=== PATIENT | male | born 1945 | race Caucasian/White ===

== ENCOUNTER 2017-06-19 21:17 | Observation (INO) | payer OTHER, BC ==
[~2017-06-19] VITALS: Ht 182.9 cm; Wt 74.8 kg
[~2017-06-19 21:17] MED LIST: ASPIRIN EC650 MG PO; ATORVASTATIN CA40 MG PO; COLCHICINE0.6 M1 PO; METOPROLOL SUCC25 MG PO; PROTONIX40 MG PO
[2017-06-19 21:50] LABS: HEMATOCRIT 46.2 % (38.0-50.0); MCH 30.3 PG (29.0-34.0); MCHC 32.7 G/DL (30.0-36.0); MCV 92.8 FL (86-99); RBC DIS.WIDTH-CV 13.2 % (11.8-14.6); RBC DIS.WIDTH-SD 45.1 % (39-53); RED BLOOD COUNT 4.98 M/uL (4.00-5.50); WHITE BLOOD COUNT 12.6 K/uL (4.1-10.2)
[2017-06-19] MEDS ORDERED: CLOPIDOGREL75 MG PO (21:57)
[2017-06-19 22:01] LABS: CHLORIDE 100 mEq/L (99-109); POTASSIUM 4.1 mEq/L (3.7-5.4); SODIUM 136 mEq/L (136-147)
[2017-06-19 22:03] LABS: GLUCOSE 111 mg/dL (70-99)
[2017-06-19 22:04] LABS: ANION GAP 9 MEQ/L (2-14)
[2017-06-19 22:07] LABS: GFR ESTIMATE (CALCULATED) > 59 mL/min/ (58.99-99999); UREA NITROGEN (BUN) 12 mg/dL (9-23)
[2017-06-19 22:14] LABS: TROP-I INTERPRETATION NEGATIVE; TROPONIN-I 0.01 ng/mL (0.0-0.30)
[2017-06-19 22:36] LABS: MEAN PLAT.VOLUME 9.9 uM^3 (9.0-12.4); PLAT.SUFFICIENCY ADEQUATE; PLATELET COUNT 240 K/uL (156-360)
[2017-06-19 23:33] LABS: MAGNESIUM 1.9 mg/dL (1.3-2.7)
[2017-06-20] MEDS ORDERED: HYDROCODON-ACE1 EAC7 PO (00:52)
[2017-06-20] MEDS ORDERED: BACLOFEN10 MG PO (00:53)
[2017-06-20] MEDS ORDERED: ATORVASTATIN CA20 MG PO (00:55)
[2017-06-20] MEDS ORDERED: LO-DOSE ASPIRIN81 M2 PO (00:59)
[2017-06-20 02:23] VITALS: BP 142/66
[2017-06-20 04:04] VITALS: BP 164/75
[2017-06-20 08:20] VITALS: BP 146/71
[2017-06-20 09:51] LABS: HEMATOCRIT 42.9 % (38.0-50.0); MCH 29.9 PG (29.0-34.0); MCHC 32.2 G/DL (30.0-36.0); MCV 92.9 FL (86-99); PLATELET COUNT 246 K/uL (156-360); RBC DIS.WIDTH-CV 13.4 % (11.8-14.6); RBC DIS.WIDTH-SD 45.7 % (39-53); RED BLOOD COUNT 4.62 M/uL (4.00-5.50); WHITE BLOOD COUNT 7.2 K/uL (4.1-10.2)
[2017-06-20 10:18] LABS: TROP-I INTERPRETATION NEGATIVE; TROPONIN-I < 0.01 ng/mL (0.0-0.30)
[2017-06-20 11:50] VITALS: BP 125/60
[2017-06-20] MEDS ORDERED: AZITHROMYCIN500 M1 PO (12:03)
[2017-06-20] MEDS ORDERED: NICOTINE PATCH1 EAC2 TD (12:04)
[2017-06-20] MEDS ORDERED: SPIRIVA RESPIMAT4 GM IH (12:04)
[2017-06-20] MEDS ORDERED: PREDNISONE20 MG PO (12:06)
[2017-06-20] MEDS ORDERED: PROVENTIL HFA6.7 GM IH (12:07)
[2017-06-20] MEDS ORDERED: ADVAIR HFA120 INHALA IH (12:09)
== END 2017-06-20 13:00 | disposition home or self-care (01) ==
LOC: EME 21:17 → 3EAST 22:50 → EDOF 22:50 → CANRESERV 22:57 → ENRESERV 22:57 → 5EAST 06-20 00:01 → ENRESERV 06-20 00:02 → 5EAST 06-20 00:45 → ENRESERV 06-20 00:47 → EDOF 06-20 01:00 → ENRESERV 06-20 01:23 → 3EAST 06-20 01:52
PROVIDERS: Emergency Medicine; Physician Assistant Medical
DX: J44.1 Chronic obstructive pulmonary disease with (acute) exacerbation (principal); J44.0 Chronic obstructive pulmonary disease with (acute) lower respiratory infection; J20.9 Acute bronchitis, unspecified; F17.210 Nicotine dependence, cigarettes, uncomplicated; J96.01 Acute respiratory failure with hypoxia; R07.9 Chest pain, unspecified; Z91.041 Radiographic dye allergy status; I95.9 Hypotension, unspecified; I25.10 Atherosclerotic heart disease of native coronary artery without angina pectoris; I25.2 Old myocardial infarction; Z95.5 Presence of coronary angioplasty implant and graft; I10 Essential (primary) hypertension; E78.5 Hyperlipidemia, unspecified; D35.01 Benign neoplasm of right adrenal gland; I73.9 Peripheral vascular disease, unspecified; Z79.02 Long term (current) use of antithrombotics/antiplatelets; Z95.820 Peripheral vascular angioplasty status with implants and grafts; Z82.49 Family history of ischemic heart disease and other diseases of the circulatory system
CPT/HCPCS: 71020; 71250; 78582; 80048; 83735; 83880; 84484; 85027; 85379; 87040; 93005; 94640; 94640 76; 94799; 99202; 99281; 99285; A9540; A9567; G0378; J0295; J1100; J1650; J2930; J7030; J7050; J7120

== ENCOUNTER 2017-10-22 20:56 | Inpatient (IN) | payer OTHER, BC ==
[~2017-10-22] VITALS: Ht 182.9 cm; Wt 85.4 kg
[~2017-10-22 20:56] MED LIST changes: +ADVAIR HFA120 INHALA IH; +ATORVASTATIN CA20 MG PO; +AZITHROMYCIN500 M1 PO; +BACLOFEN10 MG PO; +CLOPIDOGREL75 MG PO; +HYDROCODON-ACE1 EAC7 PO; +LO-DOSE ASPIRIN81 M2 PO; +NICOTINE PATCH1 EAC2 TD; +PREDNISONE20 MG PO; +PROVENTIL HFA6.7 GM IH; +SPIRIVA RESPIMAT4 GM IH
[2017-10-22 21:58] LABS: HEMATOCRIT 38.6 % (38.0-50.0); MCHC 33.7 G/DL (30.0-36.0); MCV 91.9 FL (86-99); PLATELET COUNT 238 K/uL (156-360); RBC DIS.WIDTH-CV 13.7 % (11.8-14.6); RBC DIS.WIDTH-SD 46.5 % (39-53); WHITE BLOOD COUNT 12.5 K/uL (4.1-10.2)
[2017-10-22 22:09] LABS: CHLORIDE 106 mEq/L (99-109); POTASSIUM 4.2 mEq/L (3.7-5.4); SODIUM 139 mEq/L (136-147)
[2017-10-22 22:10] LABS: GLUCOSE 96 mg/dL (70-99)
[2017-10-22 22:14] LABS: CREATININE 0.9 mg/dL (0.6-1.3); GFR ESTIMATE (CALCULATED) > 59 mL/min/ (58.99-99999)
[2017-10-22 22:15] LABS: UREA NITROGEN (BUN) 14 mg/dL (9-23)
[2017-10-22] MEDS ORDERED: PLAVIX75 MG PO (23:21)
[2017-10-22] MEDS ORDERED: TOPROL XL25 MG PO (23:21)
[2017-10-22] MEDS ORDERED: LIPITOR40 MG PO (23:21)
[2017-10-22] MEDS ORDERED: TYLENOL EXTRA500 MG PO (23:22)
[2017-10-23 02:16] LABS: MAGNESIUM 1.8 mg/dL (1.3-2.7)
[2017-10-23 02:20] LABS: SERUM ETHYL ALCOHOL < 10 mg/dL
[2017-10-23 02:27] LABS: TROP-I INTERPRETATION NEGATIVE; TROPONIN-I 0.02 ng/mL (0.0-0.30)
[2017-10-23 03:16] VITALS: BP 169/77
[2017-10-23 05:51] LABS: HEMOGLOBIN 12.8 G/DL (12.5-16.6); MCH 30.5 PG (29.0-34.0); MCHC 32.8 G/DL (30.0-36.0); MCV 92.9 FL (86-99); PLATELET COUNT 224 K/uL (156-360); RBC DIS.WIDTH-SD 47.7 % (39-53); WHITE BLOOD COUNT 10.8 K/uL (4.1-10.2)
[2017-10-23 06:25] LABS: CHLORIDE 104 MEQ/L (99-109); CREATININE 0.8 MG/DL (0.6-1.3); GFR ESTIMATE (CALCULATED) > 59 mL/min/ (58.99-99999); GLUCOSE 110 mg/dL (70-99); POTASSIUM 4.3 MEQ/L (3.7-5.4); SODIUM 137 MEQ/L (136-147); UREA NITROGEN (BUN) 12 mg/dL (9-23)
[2017-10-23 08:09] LABS: ALBUMIN 3.3 G/DL (3.2-4.8)
[2017-10-23 08:33] VITALS: BP 178/72
[2017-10-23 09:10] LABS: ERTH.SED.RATE 27 MM/HR (0-20)
[2017-10-23 12:19] VITALS: BP 160/78
[2017-10-23 16:30] VITALS: BP 163/74
[2017-10-23 20:03] VITALS: BP 160/85
[2017-10-24] VITALS (8 sets, daily range): BP systolic 94–128; BP diastolic 60–66
[2017-10-24 05:38] LABS: HEMATOCRIT 35.9 % (38.0-50.0); HEMOGLOBIN 11.5 G/DL (12.5-16.6); MCH 30.1 PG (29.0-34.0); PLATELET COUNT 202 K/uL (156-360); RBC DIS.WIDTH-CV 13.9 % (11.8-14.6); RBC DIS.WIDTH-SD 47.8 % (39-53); RED BLOOD COUNT 3.82 M/uL (4.00-5.50)
[2017-10-24 06:04] LABS: CHLORIDE 102 MEQ/L (99-109); CREATININE 0.9 MG/DL (0.6-1.3); GFR ESTIMATE (CALCULATED) > 59 mL/min/ (58.99-99999); GLUCOSE 154 mg/dL (70-99); POTASSIUM 4.2 MEQ/L (3.7-5.4); SODIUM 137 MEQ/L (136-147); UREA NITROGEN (BUN) 10 mg/dL (9-23)
[2017-10-25 03:55] VITALS: BP 140/64
[2017-10-25 05:26] LABS: HEMATOCRIT 30.6 % (38.0-50.0); HEMOGLOBIN 9.9 G/DL (12.5-16.6); MCH 30.4 PG (29.0-34.0); MCHC 32.4 G/DL (30.0-36.0); MCV 93.9 FL (86-99); PLATELET COUNT 174 K/uL (156-360); RBC DIS.WIDTH-CV 13.9 % (11.8-14.6); RBC DIS.WIDTH-SD 47.6 % (39-53); RED BLOOD COUNT 3.26 M/uL (4.00-5.50); WHITE BLOOD COUNT 8.8 K/uL (4.1-10.2)
[2017-10-25 07:40] VITALS: BP 122/58
[2017-10-25 10:55] VITALS: BP 118/58
[2017-10-25 15:42] VITALS: BP 135/61
[2017-10-25 20:16] VITALS: BP 143/65
[2017-10-26] VITALS: BP 130/54
[2017-10-26 04:17] VITALS: BP 135/62
[2017-10-26 06:23] LABS: HEMATOCRIT 29.6 % (38.0-50.0); HEMOGLOBIN 9.4 G/DL (12.5-16.6); MCH 30.1 PG (29.0-34.0); MCHC 31.8 G/DL (30.0-36.0); MCV 94.9 FL (86-99); PLATELET COUNT 181 K/uL (156-360); RBC DIS.WIDTH-CV 13.6 % (11.8-14.6); RBC DIS.WIDTH-SD 47.4 % (39-53); RED BLOOD COUNT 3.12 M/uL (4.00-5.50); WHITE BLOOD COUNT 7.1 K/uL (4.1-10.2)
[2017-10-26 07:05] VITALS: BP 120/52
[2017-10-26 09:42] LABS: APPEARANCE SL.HAZY ((CLEAR)); BILIRUBIN NEGATIVE; BLOOD NEGATIVE; COLOR AMBER ((YELLOW)); GLUCOSE (STRIP) NEGATIVE; KETONES 5; LEUKOCYTES NEGATIVE; NITRITE NEGATIVE; PROTEIN (STRIP) NEGATIVE; SPECIFIC GRAVITY 1.028 (1.000-1.030); UROBILINOGEN 0.2 MG/DL (0.2-1.0)
[2017-10-26 09:48] LABS: BACTERIA NONE SEEN /HPF; EPITHELIAL CELLS RARE /HPF; MUCUS TRACE /LPF; RED BLOOD CELLS 0-5 /HPF (0-5); WHITE BLOOD CELLS 0-5 /HPF (0-5)
[2017-10-26] MEDS ORDERED: BISAC-EVAC10 MG PR (10:56)
[2017-10-26] MEDS ORDERED: THERAGRAN1 TABLET PO (10:56)
[2017-10-26] MEDS ORDERED: Salonpas 4% Patch TD (10:56)
[2017-10-26] MEDS ORDERED: LOVENOX40 MG/0.4 SC (10:56)
[2017-10-26] MEDS ORDERED: Thiamine,Vitamin B1 PO (10:56)
[2017-10-26] MEDS ORDERED: DOCUSATE SODIU100 MG PO (10:56)
[2017-10-26] MEDS ORDERED: FOLIC ACID1 MG PO (10:56)
[2017-10-26] MEDS ORDERED: ENDOCET 5-3251 EACH PO (10:56)
[2017-10-26 11:02] VITALS: BP 118/54
[2017-10-26 11:20] VITALS: BP 111/64
[2017-10-26] MEDS ORDERED: CATAPRES0.1 MG PO (14:12)
== END 2017-10-26 12:37 | DRG 470 ==
LOC: EME → EDBD 20:56 → EME 20:56 → 3EAST 10-23 01:31 → EDOF 10-23 01:31 → ENRESERV 10-23 01:48 → 3EAST 10-23 03:10
PROVIDERS: Emergency Medicine; Hospitalist; Internal Medicine; Orthopaedic Surgery
PROC: 0SR902A Replacement of Right Hip Joint with Metal on Polyethylene Synthetic Substitute, Uncemented, Open Approach (ICD-10-PCS; principal; 2017-10-23)
DX: S72.031A Displaced midcervical fracture of right femur, initial encounter for closed fracture (principal); D62 Acute posthemorrhagic anemia; W01.0XXA Fall on same level from slipping, tripping and stumbling without subsequent striking against object, initial encounter; J44.9 Chronic obstructive pulmonary disease, unspecified; E78.5 Hyperlipidemia, unspecified; I10 Essential (primary) hypertension; I25.10 Atherosclerotic heart disease of native coronary artery without angina pectoris; I73.9 Peripheral vascular disease, unspecified; F10.20 Alcohol dependence, uncomplicated; G89.11 Acute pain due to trauma; Y90.0 Blood alcohol level of less than 20 mg/100 ml; I25.2 Old myocardial infarction; Z79.02 Long term (current) use of antithrombotics/antiplatelets; Z82.49 Family history of ischemic heart disease and other diseases of the circulatory system; Z86.73 Personal history of transient ischemic attack (TIA), and cerebral infarction without residual deficits; Z87.891 Personal history of nicotine dependence; Z95.5 Presence of coronary angioplasty implant and graft; Z98.62 Peripheral vascular angioplasty status; Z91.041 Radiographic dye allergy status; Y92.014 Private driveway to single-family (private) house as the place of occurrence of the external cause
CPT/HCPCS: 71045; 73502; 80048; 81003; 82040; 83735; 84484; 85014; 85018; 85027; 85610; 85651; 85730; 86850; 86900; 86901; 86920; 87086; 93005; 93306; 99281; 99285; G0480; J0330; J0690; J1100; J1170; J1650; J2250; J2405; J3010; J7030; J7120

== ENCOUNTER 2017-10-26 10:13 | Inpatient (IN) | payer OTHER, BC ==
[~2017-10-26] VITALS: Ht 182.9 cm; Wt 80.8 kg
[~2017-10-26 10:13] MED LIST changes: +LIPITOR40 MG PO; +PLAVIX75 MG PO; +TOPROL XL25 MG PO; +TYLENOL EXTRA500 MG PO
[2017-10-26] MEDS ORDERED: Salonpas 4% Patch TD (10:56)
[2017-10-26] MEDS ORDERED: Thiamine,Vitamin B1 PO (10:56)
[2017-10-26] MEDS ORDERED: THERAGRAN1 TABLET PO (10:56)
[2017-10-26] MEDS ORDERED: FOLIC ACID1 MG PO (10:56)
[2017-10-26] MEDS ORDERED: LOVENOX40 MG/0.4 SC (10:56)
[2017-10-26] MEDS ORDERED: DOCUSATE SODIU100 MG PO (10:56)
[2017-10-26] MEDS ORDERED: BISAC-EVAC10 MG PR (10:56)
[2017-10-26] MEDS ORDERED: ENDOCET 5-3251 EACH PO (10:56)
[2017-10-26 12:45] VITALS: BP 138/64
[2017-10-26] MEDS ORDERED: CATAPRES0.1 MG PO (14:12)
[2017-10-26 15:55] VITALS: BP 127/61
[2017-10-26 23:40] VITALS: BP 127/62
[2017-10-27 05:28] VITALS: BP 132/64
[2017-10-27 07:04] LABS: HEMATOCRIT 28.4 % (38.0-50.0); HEMOGLOBIN 9.1 G/DL (12.5-16.6); MCH 29.8 PG (29.0-34.0); MCV 93.1 FL (86-99); PLATELET COUNT 198 K/uL (156-360); RBC DIS.WIDTH-CV 13.1 % (11.8-14.6); RBC DIS.WIDTH-SD 44.8 % (39-53); RED BLOOD COUNT 3.05 M/uL (4.00-5.50); WHITE BLOOD COUNT 6.1 K/uL (4.1-10.2)
[2017-10-27 07:29] LABS: ALBUMIN 2.5 G/DL (3.2-4.8); ALKALINE PHOSPHATASE 36 IU/L (3-129); ALT (GPT) 9 IU/L (3-49); AST (GOT) 14 IU/L (2-34); CHLORIDE 99 MEQ/L (99-109); CREATININE 0.6 MG/DL (0.6-1.3); GFR ESTIMATE (CALCULATED) > 59 mL/min/ (58.99-99999); GLUCOSE 101 mg/dL (70-99); POTASSIUM 3.8 MEQ/L (3.7-5.4); SODIUM 137 MEQ/L (136-147); TOTAL BILIRUBIN 0.5 MG/DL (0.0-1.0); TOTAL PROTEIN 5.9 G/DL (6.4-8.3); UREA NITROGEN (BUN) 12 mg/dL (9-23)
[2017-10-27 15:54] VITALS: BP 130/62
[2017-10-28 04:18] VITALS: BP 147/68
[2017-10-28 05:33] LABS: BASOPHIL (%) 0.5 % (0-1); EOSINOPHIL (%) 1.8 % (0-5); EOSINOPHIL COUNT 0.1 K/uL (0-0.3); HEMATOCRIT 27.4 % (38.0-50.0); HEMOGLOBIN 9.2 G/DL (12.5-16.6); IMMATURE GRANULOCYTE (%) 0.2 % (0.0-0.7); LYMPHOCYTE (%) 14.1 % (15-42); LYMPHOCYTE COUNT 0.8 K/uL (1.0-2.8); MCHC 33.6 G/DL (30.0-36.0); MCV 92.3 FL (86-99); MONOCYTE (%) 9.5 % (3-12); MONOCYTE COUNT 0.5 K/uL (0-0.8); NEUTROPHIL (%) 73.9 % (45-76); PLATELET COUNT 217 K/uL (156-360); RBC DIS.WIDTH-CV 12.9 % (11.8-14.6); RBC DIS.WIDTH-SD 43.3 % (39-53); RED BLOOD COUNT 2.97 M/uL (4.00-5.50); WHITE BLOOD COUNT 5.5 K/uL (4.1-10.2)
[2017-10-28 06:13] LABS: ALBUMIN 2.5 G/DL (3.2-4.8); ALKALINE PHOSPHATASE 37 IU/L (3-129); ALT (GPT) 9 IU/L (3-49); AST (GOT) 14 IU/L (2-34); CHLORIDE 101 MEQ/L (99-109); CREATININE 0.7 MG/DL (0.6-1.3); GFR ESTIMATE (CALCULATED) > 59 mL/min/ (58.99-99999); GLUCOSE 136 mg/dL (70-99); POTASSIUM 3.7 MEQ/L (3.7-5.4); SODIUM 137 MEQ/L (136-147); TOTAL BILIRUBIN 0.4 MG/DL (0.0-1.0); TOTAL PROTEIN 6.2 G/DL (6.4-8.3); UREA NITROGEN (BUN) 12 mg/dL (9-23)
[2017-10-28 15:02] VITALS: BP 116/58
[2017-10-29 04:45] LABS: MCH 30.8 PG (29.0-34.0); MCHC 33.3 G/DL (30.0-36.0); MCV 92.5 FL (86-99); PLATELET COUNT 239 K/uL (156-360); RBC DIS.WIDTH-CV 12.8 % (11.8-14.6); RBC DIS.WIDTH-SD 43.9 % (39-53); RED BLOOD COUNT 2.92 M/uL (4.00-5.50); WHITE BLOOD COUNT 5.5 K/uL (4.1-10.2)
[2017-10-29 04:57] LABS: ALBUMIN 2.6 g/dL (3.2-4.8); CHLORIDE 102 mEq/L (99-109); POTASSIUM 3.9 mEq/L (3.7-5.4); SODIUM 137 mEq/L (136-147)
[2017-10-29 04:59] LABS: GLUCOSE 115 mg/dL (70-99); TOTAL PROTEIN 6.1 g/dL (6.4-8.3)
[2017-10-29 05:01] LABS: TOTAL BILIRUBIN 0.5 mg/dL (0.0-1.0)
[2017-10-29 05:03] LABS: ALKALINE PHOSPHATASE 45 IU/L (3-129); CREATININE 0.8 mg/dL (0.6-1.3); GFR ESTIMATE (CALCULATED) > 59 mL/min/ (58.99-99999)
[2017-10-29 05:04] LABS: AST (GOT) 25 IU/L (2-34); UREA NITROGEN (BUN) 13 mg/dL (9-23)
[2017-10-29 05:06] LABS: ALT (GPT) 19 IU/L (3-49)
[2017-10-29 05:35] VITALS: BP 139/68
[2017-10-29 15:51] VITALS: BP 118/58
[2017-10-30 05:40] VITALS: BP 156/70
[2017-10-30 15:51] VITALS: BP 125/60
[2017-10-31 05:30] VITALS: BP 160/64
[2017-10-31 15:36] VITALS: BP 130/63
[2017-11-01 05:13] VITALS: BP 115/59
[2017-11-01 15:01] VITALS: BP 113/59
[2017-11-01] MEDS ORDERED: LOVENOX40 MG/0.4 SC (21:35)
[2017-11-02 05:22] VITALS: BP 120/63
== END 2017-11-02 14:47 | disposition home health service (06) | DRG 560 ==
LOC: 3WEST 10:13 → ENPENDDIS 11-02 → 3WEST 11-02 14:47
PROVIDERS: Psychiatry & Neurology Neurology
PROC: F07M0ZZ Range of Motion and Joint Mobility Treatment of Musculoskeletal System - Whole Body (ICD-10-PCS; principal; 2017-10-26)
DX: S72.001D Fracture of unspecified part of neck of right femur, subsequent encounter for closed fracture with routine healing (principal); Z96.641 Presence of right artificial hip joint; W01.0XXD Fall on same level from slipping, tripping and stumbling without subsequent striking against object, subsequent encounter; I25.10 Atherosclerotic heart disease of native coronary artery without angina pectoris; I10 Essential (primary) hypertension; E78.5 Hyperlipidemia, unspecified; D62 Acute posthemorrhagic anemia; J20.9 Acute bronchitis, unspecified; J44.0 Chronic obstructive pulmonary disease with (acute) lower respiratory infection; I73.9 Peripheral vascular disease, unspecified; R26.9 Unspecified abnormalities of gait and mobility; Z86.73 Personal history of transient ischemic attack (TIA), and cerebral infarction without residual deficits; I25.2 Old myocardial infarction; Z95.5 Presence of coronary angioplasty implant and graft
CPT/HCPCS: 80048 91; 80053; 83605; 85025; 85027; 87040; 87086; 87801; 97110 GO; 97530 GP; J1650